=== PATIENT | female | born 1940 | race Caucasian/White ===

== ENCOUNTER 2024-08-16 12:51 | Day surgery (SDC) | payer MEDICARE, OTHER ==
[~2024-08-16] VITALS: Ht 167.6 cm; Wt 64.9 kg
[~2024-08-16 12:51] MED LIST: ACETAMINOPHEN325 MG PO; ALDACTONE25 MG PO; BENADRYL 25MG C25 MG PO; CARAFATE1 GM PO; CEFPODOXIME PR100 MG PO; ESTRADIOL0.1 MG/GM; FENTANYL25 MCG/HR TD; FOLIC ACID1 M1; JANTOVEN2 MG PO; JANTOVEN4 MG PO; METHENAMINE HIPP1 GM PO; PANTOPRAZOLE SO40 M1 PO; PERCOCET 5/321 COMBO PO; TOPROL XL25 MG PO; WARFARIN SODIUM4 MG PO
[2024-08-16] MEDS ORDERED: FAMOTIDINE 10MG/ML 2ML SDV IV ONE (12:54)
[2024-08-16] MEDS ORDERED: LACTATED RINGER'S 1,000 ML IV ONE (12:55)
[2024-08-16] MEDS ORDERED: Levofloxacin 500 mg Premix 100 ML IV ONE (12:55)
[2024-08-16] MEDS ORDERED: STERILE WATER FOR IRRIGATION 1,000 ML BTL IR ONE (14:41)
[2024-08-16] MEDS ORDERED: STERILE WATER 3,000 ML IV ONE (14:41)
[2024-08-16] MEDS ORDERED: SODIUM CHLORIDE 1,000 ML BTL IR ONE (14:43)
[2024-08-16] MEDS ORDERED: cefTRIAXone SODIUM 1 GM/VIAL SDV ONE (14:53)
[2024-08-16] MEDS ORDERED: SODIUM CHLORIDE 0.9% 100 ML IV ONE (14:53)
[2024-08-16 16:18] VITALS: BP 131/72
[2024-08-16] MEDS ORDERED: PROPOFOL 200 MG/20 ML VIAL IV ONE (18:38)
== END 2024-08-16 16:30 | disposition home or self-care (01) ==
LOC: ORM 12:51
PROVIDERS: ATTEND Urology
PROC: 0TBB8ZX Excision of Bladder, Via Natural or Artificial Opening Endoscopic, Diagnostic (ICD-10-PCS; principal; 2024-08-16)
DX: N30.20 Other chronic cystitis without hematuria (principal); I48.91 Unspecified atrial fibrillation; K21.9 Gastro-esophageal reflux disease without esophagitis; I10 Essential (primary) hypertension; E78.5 Hyperlipidemia, unspecified; Z87.440 Personal history of urinary (tract) infections; Z88.9 Allergy status to unspecified drugs, medicaments and biological substances
CPT/HCPCS: J0696; J1956